=== PATIENT | male | born 1995 | race Caucasian/White ===

== ENCOUNTER 2017-03-30 16:55 | Emergency (ER) | payer SELFPAY ==
--- NOTE | 2017-03-30 17:00 | PDOC ---
History of Present Illness <Jennifer Machado - Last Filed: 03/30/17 17:17> - General History Source: Patient Exam Limitations: No Limitations - History of Present Illness Initial Comments: 03/30/17 17:17 The patient is a 21 year old male, with no significant past medical history, who presents to the emergency department with, tick bite to his right upper thigh sustained 2 days ago while walking in a [facility] region of [place], [place]. Patient reports to have thought the insect was a scab and pulled it off of his skin. He also describes redness in the area of the bite. He denies any recent fevers, chills, headache or dizziness. He denies any recent nausea, vomit, diarrhea or constipation. He denies any recent chest pain or shortness of breath. He denies any recent dysuria, frequency, urgency or hematuria. Allergies: NKA Past surgical history: None reported. Social History: Nonsmoker. Denies EtOH use and recreational drug use. <Anila Orourke - Last Filed: 03/30/17 17:19> - General Chief Complaint: Redness To Affected Area Stated Complaint: REDNESS TO RIGHT UPPER LEG Time Seen by Provider: 03/30/17 17:00 Past History - Immunization History Immunization Up to Date: Yes - Suicide/Smoking/Psychosocial Hx Smoking History: Never smoked Hx Alcohol Use: No Drug/Substance Use Hx: No Substance Use Type: None <Jennifer Machado - Last Filed: 03/30/17 17:17> <Anila Orourke - Last Filed: 03/30/17 17:19> - Past Medical History Allergies/Adverse Reactions: Allergies Allergy/AdvReac Type Severity Reaction Status Date / Time No Known Allergies Allergy Verified 03/30/17 16:58 Home Medications: Ambulatory Orders NK [No Known Home Medication] 02/12/16 Review of Systems - Review of Systems Able to Perform ROS?: Yes Comments:: 03/30/17 17:18 GENERAL/CONSTITUTIONAL: No fever or chills. No weakness. SKIN: +Redness at site of bite. No rash NEUROLOGIC: No headache, vertigo, loss of consciousness, or change in strength/ sensation. Is the patient limited Spanish proficient: Yes All Other Systems: Reviewed and Negative <Anila Orourke - Last Filed: 03/30/17 17:19> *Physical Exam - Physical Exam Comments: GENERAL: Awake, alert, and fully oriented, in no acute distress HEAD: No signs of trauma EXTREMITIES: Normal range of motion, no edema. No clubbing or cyanosis. No cords, erythema, or tenderness NEUROLOGICAL: Cranial nerves II through XII grossly intact. Normal speech, normal gait SKIN: Warm, Dry, normal turgor. +Small erythematous excoriated area to R upper thigh. <Jennifer Machado - Last Filed: 03/30/17 17:17> - Vital Signs Last Vital Signs Temp Pulse Resp BP Pulse Ox 98.1 F 79 18 123/80 98 03/30/17 16:55 03/30/17 16:55 03/30/17 16:55 03/30/17 16:55 03/30/17 16:55 <Anila Orourke - Last Filed: 03/30/17 17:19> Medical Decision Making - Medical Decision Making 03/30/17 17:13 No signs of lyme at present, however, patient was in an area where lyme is common and actually saw the tick and removed it. Will treat prophylactically. Will give discharge instructions for Lyme so that he may be aware of the symptoms. <Jennifer Machado - Last Filed: 03/30/17 17:17> *DC/Admit/Observation/Transfer - Discharge Dispostion Admit: No <Jennifer Machado - Last Filed: 03/30/17 17:17> - Attestations Scribe Attestion: 03/30/17 17:19 Documentation prepared by Anila Orourke, acting as medical unit secretary for Jennifer Machado MD. <Anila Orourke - Last Filed: 03/30/17 17:19> Diagnosis at time of Disposition: Tick bite Qualifiers: Encounter type: initial encounter Qualified Code(s): W57.XXXA - Bitten or stung by nonvenomous insect and other nonvenomous arthropods, initial encounter - Discharge Dispostion Disposition: HOME Condition at time of disposition: Stable - Patient Instructions Printed Discharge Instructions: DI for Lyme Disease
[2017-03-30 17:01] VITALS: BP 123/80; PULSE 79; TEMP 98.1; BMI 22.4
[2017-03-30] MEDS ORDERED: DOXYCYCLINE HYCLATE 100 MG CAPSULE PO ONE (17:12)
== END 2017-03-30 17:50 | disposition home or self-care (01) ==
LOC: FER 16:55
DX: S71.151A Open bite, right thigh, initial encounter (principal); W57.XXXA Bitten or stung by nonvenomous insect and other nonvenomous arthropods, initial encounter; Y93.89 Activity, other specified; Y92.89 Other specified places as the place of occurrence of the external cause
CPT/HCPCS: 99282-25